=== PATIENT | female | born 1985 | race Caucasian/White ===

== ENCOUNTER 2017-02-18 21:16 | Emergency (ER) | payer SELFPAY, OTHER ==
[2017-02-18] MEDS: DIPHTH/TET/ACEL PERTUSS (ADULT) 0.5 ML VIAL IM* (21:54)
== END 2017-02-18 22:12 | disposition home or self-care (01) ==
LOC: FTE 21:16
DX: L53.9 Erythematous condition, unspecified (principal); Z23 Encounter for immunization
CPT/HCPCS: 90471; 90715; 99283-25

== ENCOUNTER → 2018-09-13 | Emergency (ER) | payer OTHER, MEDICAID | END | disposition home or self-care (01) | LOC: FTE 09:12 | DX: M54.2 Cervicalgia (principal) | CPT/HCPCS: 99283; Z7502 ==